=== PATIENT | male | born 1955 | race Caucasian/White ===

== ENCOUNTER 2020-07-22 18:24 | Emergency (ER) | payer OTHER, SELFPAY ==
[2020-07-22 18:26] VITALS: BP 171/101; PULSE 79; RESP 18; TEMP 36.4; O2SAT 97; BMI 30.1
--- NOTE | 2020-07-22 18:46 | CT_ITS ---
INDICATION: Kidney Stone EXAMINATION: CT Abdomen And Pelvis W/O Contrast Injection TECHNIQUE: Helically acquired images were obtained of the abdomen and pelvis without the use of IV contrast. A radiation dose optimization technique was used for this scan. Oral contrast: None. COMPARISON: None FINDINGS: Evaluation of the solid organs and vascular structures is limited without intravenous contrast. Visualized lung bases: Unremarkable Liver: Diffusely hypodense consistent with fatty liver. Gallbladder: Unremarkable Spleen: Unremarkable Pancreas: Unremarkable Adrenal Glands: Unremarkable Kidneys: Urinary diversion with ileal conduit on the right. Multiple tiny nonobstructing calculi seen in the right kidney. 4 mm obstructing stone seen in the distal left ureter with associated moderate hydroureteronephrosis. There are additional nonobstructing calculi seen in the left kidney measuring up to 1.1 cm. Vasculature: Unremarkable GI Tract: Hiatal hernia. Scattered colonic diverticula. Lymphadenopathy: None Peritoneum: No ascites. Bladder: 4 mm dependent bladder stone. Reproductive organs: The prostate is mildly enlarged. Bones/Soft tissues: There are diffuse degenerative changes of the spine. Right convex curvature of the lumbar spine. CT/Abdomen/Pelvis without Cont IMPRESSION: 4 mm obstructing stone seen in the distal left ureter with associated moderate left hydroureteronephrosis. Few additional nonobstructing calculi seen in the left kidney measuring up to 1.1 cm. 4 mm bladder stone. 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 Fatty liver. Diverticulosis. Mild prostatomegaly. Recommend correlation with PSA levels. Electronically Signed: Dick Matias MD at 19:54 EDT Tel , Service support ,
[2020-07-22] MEDS: Morphine 4 MG/ML Syringe IV (18:59)
[2020-07-22] MEDS: Ondansetron 4 MG/2 ML Vial IV (18:59)
[2020-07-22] MEDS: 0.9% Normal Saline 1,000 ML 250 ML IV (18:59)
[2020-07-22 19:05] LABS: Bacteria 0 SEEN /hpf (None Seen); Mucous, Urine 0 SEEN /hpf (<or=2+); Squamous Epithelial Cells - UA 0 SEEN /hpf (0-5)
[2020-07-22] MEDS: Ketorolac 15 MG/ML Vial IV (19:05)
[2020-07-22 19:08] LABS: Color, Urine Yellow (Yellow); Glucose, Dipstick Normal (Normal); Ketone-Dipstick 5 mg/dl (Negative); Leukocyte Esterase-Dipstick 25 /ul (Negative); Nitrite-Dipstick Negative (Negative); Occult Blood-Urine 250 /ul (Negative); Protein-Dipstick 30 mg/dl (Negative); Specific Gravity, Urine 1.025 (1.002-1.030); Urine Bilirubin Dipstick Negative (Negative); Urine Clarity Cloudy (Clear); Urine Urobilinogen Normal (Normal)
[2020-07-22 19:17] LABS: Red Blood Cells-Urine > 100 SEEN /hpf (0-5)
[2020-07-22 19:18] LABS: White Blood Cells 0-5 SEEN /hpf (0-5)
[2020-07-22 19:39] VITALS: BP 156/88; PULSE 75; RESP 16; O2SAT 95
--- NOTE | 2020-07-22 20:26 | ED.DCSUM_ITS ---
- ER Visit Summary Date of Service: 07/22/20 Chief Complaint: Flank pain History of Present Illness: The patient is a 65 M who sees Emerson Muñoz. He does not see a urologist. He reports she has left flank pain and left lower quadrant pain began abruptly 2 hours ago. Is a sharp pain is 10 of 10 severity. Nothing makes this better or worse. He had nausea without vomiting. No diarrhea. His last problem is today. No melena hematochezia. Reports has had frequent urination with this. Physical Examination: Vitals: Stable. Afebrile. General: Well-nourished and well-developed. Head: Normocephalic atraumatic. Neck: Supple, no lymphadenopathy. No JVD. Nontender. Cardiovascular: Regular rate and rhythm. No murmurs. Respiratory: No respiratory distress. Clear to auscultation bilaterally. Abdominal: Soft, nontender, nondistended, normal bowel sounds. No guarding, rebound, or peritoneal signs. Back: Nontender. No CVA tenderness. Extremities: Nontender, no edema. Skin: Normal color, no rash. Neurologic: Alert and oriented ?3. Cranial nerves II through XII are intact. N ormal strength and sensation. Psych: Normal affect. Test Results: UA shows leukocytes, blood, ketones, greater than 100 red blood cells. Clinical Impression(s) from Imaging Studies Abdomen/Pelvis CT 07/22/20 18:46 IMPRESSION: 4 mm obstructing stone seen in the distal left ureter with associated moderate left hydroureteronephrosis. Few additional nonobstructing calculi seen in the left kidney measuring up to 1.1 cm. 4 mm bladder stone. 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 Fatty liver. Diverticulosis. Mild prostatomegaly. Recommend correlation with PSA levels. Electronically Signed: Dick Matias MD at 19:54 EDT Tel , Service support , Emergency Department Course and Treatment: Patient had an IV placed. Is given liter normal saline. Is given morphine, Zofran, and Toradol IV. He is now resting comfortably. Treatment Plan: Patient be discharged with a urine strainer, Percocet, senna, Zofran, and Flomax. Instructed to follow-up with Dr. Cox in 1 week if not improving. Return to the emergency department for any worsening symptoms. Disposition: To home in improved and stable condition. Impression: 1. Left ureterolithiasis. This note was generated with [employer] dictation software. It may contain incorrect words, spelling, and punctuation that were not noted in review of the chart prio r to signing ED Disposition - Plan for ED Patient: Disposition: Home or Assisted Living Instructions: ED Kidney Stone w/ Colic Prescriptions: Tamsulosin HCl [Flomax] 0.4 mg PO DAILY #7 capsule Prescription Printed Oxycodone HCl/Acetaminophen [Percocet 5/325] 1 tablet PO Q6H PRN PRN 3 Days #12 tab PRN Reason: Pain Prescription Printed Sennosides [Senna] 8.6 mg PO QHS #10 tablet Prescription Printed Ondansetron [Zofran Odt] 4 mg PO Q8H PRN PRN #10 tablet PRN Reason: Nausea Prescription Printed Referrals: Arturo Cox MD [STAFF PHYSICIAN] - 1 Week if not improving
[2020-07-22 20:45] VITALS: BP 132/81; PULSE 64; RESP 18; O2SAT 94
== END 2020-07-22 20:49 | disposition home or self-care (01) ==
LOC: ED 19:04
PROVIDERS: Emergency Provider Emergency Medicine; PCP Physician Assistant
DX: N13.2 Hydronephrosis with renal and ureteral calculous obstruction (principal); I10 Essential (primary) hypertension; E03.9 Hypothyroidism, unspecified; Z79.899 Other long term (current) drug therapy
CPT/HCPCS: 74176; 81001; 96361; 96374; 96375; 99284; J7030; A4216; J2405

== ENCOUNTER 2020-09-26 15:53 | Emergency (ER) | payer OTHER, SELFPAY ==
[2020-09-26 15:54] VITALS: BP 154/93; PULSE 70; RESP 14; TEMP 35.7; O2SAT 96; BMI 29.7
--- NOTE | 2020-09-26 16:17 | CT_ITS ---
STUDY: CT ABDOMEN AND PELVIS WITHOUT CONTRAST REASON FOR EXAM: Male, 65 years old. Kidney Stone RADIATION DOSAGE (If Supplied By Facility): CTDIvol = ( 16.81 ) mGy, DLP = ( 855.46 ) mGycm TECHNIQUE: Transaxial images were obtained from the dome of the diaphragm to the symphysis pubis without oral contrast, and without intravenous contrast. Sagittal and coronal images were reconstructed. Individualized dose optimization techniques were used for this CT. COMPARISON: 07/22/2020. FINDINGS: The visualized lung bases are unremarkable. The visualized portions of the heart are within normal limits. Normal liver. Normal gallbladder and extrahepatic biliary system. Normal spleen. Normal pancreas. Normal bilateral adrenal glands. Right parapelvic cysts/dilated renal pelvis is similar in appearance compared to prior. Obstructing stone has migrated to the left ureterovesicular junction with moderate hydroureteronephrosis and extensive left perinephric stranding. Multiple stones are seen within left lower pole renal calyx. Normal visualized stomach. Normal small intestine. There are multiple colonic diverticula consistent with diverticulosis. The appendix is visualized and appears normal. Normal abdominal aorta. Normal inferior vena cava. Normal retroperitoneum. Normal urinary bladder. There is enlargement of the prostate gland. Normal abdominal wall. There are diffuse degenerative changes of the visualized lumbar spine. CT/Abdomen/Pelvis without Cont IMPRESSION: Obstructing stone has migrated to the left ureterovesicular junction with moderate hydroureteronephrosis and extensive left perinephric stranding. Other chronic findings are unchanged Electronically Signed: Tk Akhtar MD at 17:38 EDT Tel , Service support ,
--- NOTE | 2020-09-26 16:19 | EX.ED.DYSGE1 ---
HPI History of Present Illness Chief Complaint: Abd Pain Detail of Chief Complaint: Left flank pain, possible kidney stone Informant: patient Onset/Context/Timing Onset: Today Context: Sudden Onset Timing: Continuous Quality: Dull Location: Left flank Worsened by: Nothing Relieved by: Nothing Narrative Narrative: Patient presents with left flank pain that began today. Patient states he has a history of kidney stones and this feels similar to prior kidney stones. Patient describes the pain as dull. Patient states it is over the left flank area. Patient states nothing makes it better nothing makes it worse. Patient states he is unable to find a position of comfort. Patient denies any fevers or chills. Patient denies any nausea or vomiting. Patient admits to some urinary urgency but denies any dysuria or hematuria. [facility] Medical History (Updated 09/26/20 @ 18:[address] Panfilo Morales DO) Kidney stones Home Medications omeprazole 20 mg PO DAILY 11/22/13 [History Last Taken 03/04/15 09:00] losartan 100 mg PO DAILY 11/16/14 [History Last Taken 03/04/15 09:00] ibuprofen 600 mg PO Q12H PRN PRN 01/03/15 [History Last Taken Unknown] Sennosides [Senna] 8.6 mg PO QHS #10 tablet 07/22/20 [Rx Last Taken Unknown] levothyroxine 25 mcg PO DAILY 07/22/20 [History Last Taken Unknown] ondansetron 4 mg PO Q8H PRN PRN #10 tablet 07/22/20 [Rx Last Taken Unknown] tamsulosin 0.4 mg PO DAILY #7 capsule 07/22/20 [Rx Last Taken Unknown] Allergy/AdvReac Type Severity Reaction Status Date / Time prochlorperazine AdvReac Other Verified 09/26/20 15:55 [From Compazine] Social History Smoking Status: Never smoker ROS ROS ED Constitutional Constitutional ED: Denies chills or fever(s) Eyes Eyes: Denies blurry vision or change in vision ENT ENT ED: Denies rhinorrhea or sore throat Cardiovascular Cardiovascular: Denies chest pain or palpitations Respiratory/Chest Respiratory/Chest: Denies cough or dyspnea Gastrointestinal Gastrointestinal: Denies nausea or vomiting Genitourinary Genitourinary ED: Reports other Details: Urgency ; Denies dysuria or hematuria Musculoskeletal Musculoskeletal: Reports back pain; Denies neck pain Integumentary Denies abscess or rash Neurologic Neurologic: Denies headache(s) or weakness Allergic/Immunologic Allergic/Immunologic ED: Denies mouth swelling or urticaria EXAM Physical Exam Const Vital Signs: 09/26/20 15:54 Temperature 96.2 F L Temperature Source Temporal Pulse Rate 70 Respiratory Rate 14 Blood Pressure 154/93 H Blood Pressure Mean 113 Pulse Ox 96 Oxygen Delivery Method Room Air Positive well nourished and well developed General Appearance ED: well developed HEENT Reports moist mucous membranes Neck supple and no JVD Resp normal respiratory effort and clear to auscultation bilaterally Cardio regular rate, regular rhythm and no murmurs GI normal to inspection, nondistended, normoactive bowel sounds and non-tender Palpation: soft Extremity normal to inspection General Extremety ED: Negative for edema or tenderness General Extremity: Negative for edema Neuro oriented x3, CN's II-XII intact bilaterally and no sensory deficits noted Sensorium / Orientation: alert Motor Exam: strength 5/5 throughout Psych mental status grossly normal Skin no rashes or lesions noted MDM MDM MDM Narrative Medical decision making narrative: Patient was given IV fluids, Zofran, and morphine here. CBC was within normal limits. Basic metabolic profile showed a slightly elevated creatinine 1.46 and BUN of 25. Urinalysis does not show any evidence of urinary tract infection. CT scan of the abdomen pelvis was obtained. There is an obstructing stone at the left UVJ with moderate hydronephrosis. Patient is resting comfortably on reexamination. Patient was instructed to continue his pain medication as previously prescribed. Patient was given referral for urology for follow-up care. Patient understood and was agreeable with the plan. All questions were answered. Lab Data Attestation: I reviewed the patient's lab results. Labs: Laboratory Results - last 24 hr 09/26/20 09/26/20 09/26/20 16:28 16:28 17:06 WBC 8.8 RBC 4.49 L Hgb 14.3 Hct 42.1 MCV 93.8 MCH 31.8 MCHC 34.0 RDW Std Deviation 42.3 RDW Coeff of Vish 12.2 Plt Count 230 MPV 9.4 Immature Gran % (Auto) 0.300 Neut % (Auto) 71.5 H Lymph % (Auto) 19.0 [place] % (Auto) 8.0 Eos % (Auto) 0.9 Baso % (Auto) 0.3 Absolute Neuts (auto) 6.3 Absolute Lymphs (auto) 1.68 Nucleated RBC % 0 Sodium 137 Potassium 3.8 Chloride 106 Carbon Dioxide 25.0 Anion Gap 6 BUN 25 H Creatinine 1.46 H Estim Creat Clear Calc 61.90 Est GFR (MDRD) Af Amer 63 Est GFR (MDRD) Non-Af 52 L BUN/Creatinine Ratio 17.1 Glucose 111 H Calcium 8.3 L Urine Color Yellow Urine Clarity Clear Urine pH 6.0 Ur Specific [place] 1.025 Urine Protein Negative Urine Glucose (UA) Normal Urine Ketones Negative Urine Occult Blood 10 H Urine Nitrite Negative Urine Bilirubin Negative Urine Urobilinogen Normal Ur Leukocyte Esterase Negative Urine RBC 0-5 SEEN Urine WBC 0 SEEN Ur Squamous Epith Cells 0-5 SEEN Urine Bacteria 0 SEEN Urine Mucus 0 SEEN Radiography Diagnostic Testing: Radiology Impression Abdomen/Pelvis CT 09/26/20 16:17 IMPRESSION: Obstructing stone has migrated to the left ureterovesicular junction with moderate hydroureteronephrosis and extensive left perinephric stranding. Other chronic findings are unchanged Electronically Signed: Tk Akhtar MD at 17:38 EDT Tel , Service support , Discharge Plan Triage Chief Complaint: Abd Pain ED Provider: Panfilo Morales Dx/Rx/DC Orders Clinical Impression: Calculus of distal left ureter Instructions: ED Kidney Stone w/ Colic Prescriptions: No Action omeprazole 20 MG capsule 20 mg PO DAILY RF: 0 losartan 100 MG tablet 100 mg PO DAILY RF: 0 ibuprofen 200 MG tablet 600 mg PO Q12H PRN PRN (Reason: Moderate Breakthrough Pain) RF: 0 levothyroxine 25 MCG tablet 25 mcg PO DAILY RF: 0 tamsulosin 0.4 MG capsule 0.4 mg PO DAILY Qty: 7 RF: 0 ondansetron 4 MG tablet 4 mg PO Q8H PRN PRN (Reason: Nausea) Qty: 10 RF: 0 Sennosides [Senna] 8.6 MG tablet 8.6 mg PO QHS Qty: 10 RF: 0 Primary Care Provider: Teodoro Muñoz Referrals: Arturo Cox MD [STAFF PHYSICIAN] - 3-5 Days Teodoro Muñoz PA [Primary Care Provider] - 5-7 Days Disposition Disposition: Home, Self Care
[2020-09-26] MEDS: Ondansetron 4 MG/2 ML Vial IV (16:42)
[2020-09-26] MEDS: 0.9% Normal Saline 1,000 ML 250 ML IV (16:42)
[2020-09-26] MEDS: Morphine 4 MG/ML Syringe IV (16:43)
[2020-09-26 16:49] LABS: Absolute Lymphocyte Count 1.68 X10^3/uL (0.83-4.51); Absolute Neutrophil Count 6.3 X10^3/uL (2.0-7.7); Basophil# 0.03 X10^3/uL; Basophil% 0.3 % (0-1); Eosinophil# 0.08 X10^3/uL; Eosinophils% 0.9 % (0-5); Hematocrit 42.1 % (40-54); Hemoglobin 14.3 g/dL (13.0-16.5); Lymphocyte # 1.68 X10^3/ul (0.83-4.51); Mean Corpuscular Hgb 31.8 pg (27.0-32.0); Mean Corpuscular Volume 93.8 fL (80-94); Mean Platelet Vol. 9.4 fl (6.2-12.0); Monocyte# 0.71 X10^3/uL; NRBC Flagged by Analyzer 0 % (0-5); Neutrophil % 71.5 % (47-70); Platelet Count 230 K/mm3 (150-450); RBC Distribution Width CV 12.2 % (11.6-14.6); RBC Distribution Width SD 42.3 fl (35.1-43.9); Red Blood Count 4.49 M/mm3 (4.6-6.2); White Blood Count 8.8 K/mm3 (4.4-11.0)
[2020-09-26 16:55] LABS: Anion Gap 6 (5-15); BUN 25 mg/dL (7-18); BUN/Creat Ratio 17.1 RATIO (10-20); Calcium,Total 8.3 mg/dL (8.5-10.1); Chloride 106 mmol/L (98-107); Creatinine, Serum 1.46 mg/dL (0.70-1.30); EST Glomerular Filtration Rate 52 mL/min (>60); Est Glom Filt Rate - Afr Amer 63 mL/min (>60); Glucose 111 mg/dL (74-106); Potassium 3.8 mmol/L (3.5-5.1); Sodium Level 137 mmol/L (136-145)
[2020-09-26 17:12] LABS: Bacteria 0 SEEN /hpf (None Seen); Mucous, Urine 0 SEEN /hpf (<or=2+); White Blood Cells 0 SEEN /hpf (0-5)
[2020-09-26 17:22] LABS: Color, Urine Yellow (Yellow); Glucose, Dipstick Normal (Normal); Ketone-Dipstick Negative (Negative); Leukocyte Esterase-Dipstick Negative /ul (Negative); Nitrite-Dipstick Negative (Negative); Occult Blood-Urine 10 /ul (Negative); Protein-Dipstick Negative (Negative); Specific Gravity, Urine 1.025 (1.002-1.030); Urine Bilirubin Dipstick Negative (Negative); Urine Clarity Clear (Clear); Urine Urobilinogen Normal (Normal)
[2020-09-26 17:44] LABS: Red Blood Cells-Urine 0-5 SEEN /hpf (0-5); Squamous Epithelial Cells - UA 0-5 SEEN /hpf (0-5)
[2020-09-26 18:56] VITALS: BP 140/78; PULSE 64; PULSE 67; RESP 18
== END 2020-09-26 19:00 | disposition home or self-care (01) ==
PROVIDERS: Emergency Provider Emergency Medicine; PCP Physician Assistant
DX: N13.2 Hydronephrosis with renal and ureteral calculous obstruction (principal); Z87.442 Personal history of urinary calculi
CPT/HCPCS: 74176; 80048; 81001; 85025; 96361; 96374; 96375; 99284; J7030; A4216; J2405

== ENCOUNTER 2024-02-18 10:19 | Emergency (ER) | payer OTHER, SELFPAY ==
[2024-02-18 10:20] VITALS: BP 157/100; PULSE 80; RESP 16; TEMP 36.6; O2SAT 98; BMI 31.5
--- NOTE | 2024-02-18 10:40 | ED.VIS.GI ---
HPI HPI - GI History of Present Illness Chief Complaint: Flank Pain Narrative Narrative: 68-year-old male, past medical history of hypertension, arthritis, presents with right flank pain that has had for the last 4 days. He relates history that remotely he has had kidney stones in the past and this feels similar. His pain began around 4 days ago. Described as both dull and achy and sharp and stabbing. Relatively constant, but waxes and wanes. He denies any gross hematuria, no fevers or chills, no nausea or vomiting. He has been taking Tylenol and he also takes an NSAID with mild relief of his symptoms. Does not necessarily radiate towards the front. [facility] Medical History Thyroid disorder Hypercholesteremia Hypertension Kidney stones Home Medications ?Medication ?Instructions ?Recorded ?Last Taken ?Type omeprazole 20 mg capsule,delayed 20 mg PO DAILY 11/22/13 03/04/15 09:00 History release losartan 100 mg tablet 100 mg PO DAILY 11/16/14 03/04/15 09:00 History ibuprofen 200 mg tablet 600 mg PO Q12H PRN PRN Moderate 01/03/15 Unknown History Breakthrough Pain Sennosides [Senna] 8.6 mg PO QHS #10 tabs 07/22/20 Unknown Rx levothyroxine 25 mcg tablet 25 mcg PO DAILY 07/22/20 Unknown History ondansetron 4 mg disintegrating 4 mg PO Q8H PRN PRN Nausea #10 tabs 07/22/20 Unknown Rx tablet tamsulosin 0.4 mg capsule 0.4 mg PO DAILY #7 CAPSULES 07/22/20 Unknown Rx cyclobenzaprine 10 mg tablet 10 mg PO TID PRN Muscle Spasm #20 02/18/24 Unknown Rx TABLETS Allergy/AdvReac Type Severity Reaction Status Date / Time prochlorperazine (From AdvReac Other Verified 02/18/24 10:20 Compazine) Social History Smoking Status: Never smoker ROS ROS ED ROS Narrative Constitutional: No fever, no chills. HEENT: No sore throat. No neck pain. No loss of vision. No rhinorrhea. Cardiovascular: No chest pain. No palpitations. No pedal edema. Respiratory: No cough, no shortness of breath. Abdominal: No abdominal pain. No nausea. No vomiting. Genitourinary: No dysuria. No hematuria. Positive right flank pain. Musculoskeletal: No myalgias. No arthralgias. Neurologic: No headaches. No dizziness. No lightheadedness. Skin: No rash. No change in color. Psychiatric: No depression. No anxiety. EXAM Physical Exam Narrative Exam Narrative: Afebrile. Vital signs noted. HEENT: Normocephalic. Atraumatic. PERRL, EOMI. Neck soft and supple. No point tenderness or step off. Cardiovascular: Regular rate and rhythm. No murmurs, rubs, or gallops appreciated. Respiratory: No tachypnea. Lungs clear to auscultation bilaterally. Gastrointestinal: Abdomen soft, nontender, with normoactive bowel sounds. No rebound or guarding. Negative Mai sign. No CVA tenderness to percussion. Neurological: Awake. Alert. Nonfocal, nonlateralizing. Skin: No rash. Normal color. No pallor. Musculoskeletal: No pedal edema. Full range of motion extremities. Const Vital Signs: 02/18/24 10:20 02/18/24 12:19 Temperature 97.8 F Temperature Source Temporal Pulse Rate 80 61 Respiratory Rate 16 15 Blood Pressure 157/100 H 143/103 H Blood Pressure Mean 119 116 Pulse Ox 98 97 Oxygen Delivery Method Room Air Room Air MDM [facility] Narrative Medical decision making narrative: Differential diagnosis includes but not limited to ureterolithiasis versus pyelonephritis versus cholecystitis. History and physical does not support cholecystitis. He declined stronger pain medications here in the emergency department. He relates history that he is leaving for vacation tomorrow so wants to know whether or not he has a kidney stone as this feels very similar. I reviewed his laboratory work and he has normal white count of 6.2 with hemoglobin normal at 15.8, hematocrit 44.6, platelet count normal at 260. Electrolyte panel positive for chloride of 108 BUN slightly elevated 29 with normal creatinine of 1.24, glucose elevated at 132 with normal anion gap of 6. Urinalysis is negative for infection with 0-5 WBCs, 0-5 RBCs. 0 bacteria. I do not feel antibiotics are indicated. CT of the abdomen and pelvis without hand tenderness was obtained and reviewed, and there is no evidence of obstructing ureteral stone. He does have a 2 mm renal stone. He has stable renal cysts. Otherwise, grossly unremarkable. LFTs show slightly elevated alk phos which I think is nonspecific, normal AST and normal ALT. Lipase is normal at 36 so I doubt pancreatitis. I do not feel that he needs imaging of the gallbladder. After Toradol, repeat examination shows him resting comfortably and he feels slightly improved. He may have more musculoskeletal back/flank pain. I feel he be discharged to follow-up. He will continue his [id number] medications for pain and his prescription NSAIDs. I did add a few tablets of cyclobenzaprine. I feel he can be discharged to follow-up with his primary care provider. Return instructions were reviewed. Patient motivated for discharge. Disposition is discharged home in stable condition. History & Record Review Discussion w/independent historian: Patient Lab Data Attestation: I reviewed the patient's lab results. Labs: Laboratory Results - last 24 hr 02/18/24 02/18/24 10:25 11:22 WBC 6.2 RBC 4.85 Hgb 15.8 Hct 44.6 MCV 92.0 MCH 32.6 H MCHC 35.4 RDW Std Deviation 41.7 RDW Coeff of Vish 12.3 Plt Count 260 MPV 9.3 Immature Gran % (Auto) 0.500 Neut % (Auto) 50.5 Lymph % (Auto) 37.8 [place] % (Auto) 8.5 Eos % (Auto) 1.6 Baso % (Auto) 1.1 H Absolute Neuts (auto) 3.1 Absolute Lymphs (auto) 2.35 Nucleated RBC % 0 Sodium 138 Potassium 4.4 Chloride 109 H Carbon Dioxide 23.0 Anion Gap 6 BUN 29 H Creatinine 1.24 Estim Creat Clear Calc 79.98 Est GFR (MDRD) Af Amer 75 Est GFR (MDRD) Non-Af 62 BUN/Creatinine Ratio 23.4 H Glucose 132 H Calcium 9.4 Total Bilirubin 1.00 AST 21 ALT 32 Alkaline Phosphatase 120 H Total Protein 7.9 Albumin 4.1 Globulin 3.8 Albumin/Globulin Ratio 1.1 Lipase 36 Urine Color Yellow Urine Clarity Clear Urine pH 5.0 Ur Specific [place] 1.025 Urine Protein 30 H Urine Glucose (UA) Normal Urine Ketones Negative Urine Occult Blood 10 H Urine Nitrite Negative Urine Bilirubin Negative Urine Urobilinogen Normal Ur Leukocyte Esterase Negative Urine RBC 0-5 SEEN Urine WBC 0-5 SEEN Ur Squamous Epith Cells 0 SEEN Urine Bacteria 0 SEEN Hyaline Casts 0-5 SEEN Urine Mucus 1+ Urine Yeast RARE Radiography Diagnostic Testing: Clinical Impression(s) from Imaging Studies Abdomen/Pelvis CT 02/18/24 10:47 IMPRESSION: 1. 2 mm right renal stone. 2. Diverticulosis coli. Electronically Signed: Vladimir Jade MD at 11:05 EST , Discharge Plan Triage Chief Complaint: Flank Pain ED Provider: Sang Gil Dx/Rx/DC Orders Clinical Impression: Acute right flank pain, Back pain Instructions: ED Flank Pain, Uncertain Cause, ED Pain, Acute, Uncertain Cause Prescriptions: New cyclobenzaprine 10 mg tablet 10 mg PO TID PRN (Reason: Muscle Spasm) Qty: 20 0RF No Action omeprazole 20 MG capsule 20 mg PO DAILY Patient Comments: acid reflux losartan 100 MG tablet 100 mg PO DAILY Patient Comments: blood pressure ibuprofen 200 MG tablet 600 mg PO Q12H PRN PRN (Reason: Moderate Breakthrough Pain) Patient Comments: anti-inflammatory levothyroxine 25 MCG tablet 25 mcg PO DAILY tamsulosin 0.4 MG capsule 0.4 mg PO DAILY Qty: 7 0RF ondansetron 4 MG tablet 4 mg PO Q8H PRN PRN (Reason: Nausea) Qty: 10 0RF Sennosides [Senna] 8.6 MG tablet 8.6 mg PO QHS Qty: 10 0RF Primary Care Provider: Briana Morse Referrals: Teodoro Muñoz PA [Non-Staff] - As soon as possible Activity Restrictions/Additional Instructions: Return with fever, increased pain, new or worsening symptoms. Print Language: [place] Disposition Disposition: Home, Self Care
--- NOTE | 2024-02-18 10:47 | CT_ITS ---
EXAM: CT ABDOMEN AND PELVIS WITHOUT INTRAVENOUS CONTRAST CLINICAL INDICATION: Kidney Stone TECHNIQUE: Helically acquired images were obtained of the abdomen and pelvis without intravenous contrast. This CT exam was performed using one or more of the following dose reduction techniques: automated exposure control, adjustment of the mA and/or kV according to patient size, and/or use of iterative reconstruction technique. COMPARISON: CT Abdomen Pelvis dated 09/26/2020 and 07/22/2020 FINDINGS: LOWER THORAX: Normal. Lung bases are clear. No cardiomegaly. No pericardial effusion. ABDOMEN: LIVER: Normal. Homogeneous. GALLBLADDER AND BILE DUCTS: Normal. No calcified gallstones. No gallbladder distention or wall edema. No intra- or extrahepatic biliary ductal dilation. PANCREAS: Normal. No focal cystic mass. SPLEEN: Normal. Normal size without focal cystic or solid mass. ADRENALS: Normal. No nodules. KIDNEYS AND URETERS: 2 mm stone again noted within the lower pole calyx of the right kidney. Resolution of the previously noted left renal stones. Stable right parapelvic renal cysts. Stable 16 mm left renal cyst. No specific follow-up indicated. STOMACH AND BOWEL: Diverticulosis of the colon noted without evidence of acute diverticulitis. PELVIS: APPENDIX: Appendix is visualized and normal in appearance. BLADDER: Normal. REPRODUCTIVE: Unremarkable as visualized. No mass. ABDOMEN and PELVIS: INTRAPERITONEAL SPACE: Normal. No ascites or other fluid collection. No free air. BONES/JOINTS: No suspicious lytic or blastic abnormality. SOFT TISSUES: Small fat-containing umbilical hernia is present. VASCULATURE: Normal. Abdominal aorta is non-dilated. LYMPH NODES: Normal. No enlarged lymph nodes. CT/Abdomen/Pelvis without Cont IMPRESSION: 1. 2 mm right renal stone. 2. Diverticulosis coli. Electronically Signed: Vladimir Jade MD at 11:05 EST ,
[2024-02-18 10:52] LABS: Absolute Lymphocyte Count 2.35 X10^3/uL (0.83-4.51); Absolute Neutrophil Count 3.1 X10^3/uL (2.0-7.7); Basophil# 0.07 X10^3/uL; Basophil% 1.1 % (0-1); Eosinophils% 1.6 % (0-5); Hematocrit 44.6 % (40-54); Hemoglobin 15.8 g/dL (13.0-16.5); Lymphocyte # 2.35 X10^3/ul (0.83-4.51); Lymphocyte % 37.8 % (19-41); Mean Corp Hgb Conc 35.4 g/dL (32-36); Mean Corpuscular Hgb 32.6 pg (27.0-32.0); Mean Platelet Vol. 9.3 fl (6.2-12.0); Monocyte# 0.53 X10^3/uL; Monocyte% 8.5 % (0-10); NRBC Flagged by Analyzer 0 % (0-5); Neutrophil # 3.14 X10^3/uL (2.7-7.7); Neutrophil % 50.5 % (47-70); Platelet Count 260 K/mm3 (150-450); RBC Distribution Width CV 12.3 % (11.6-14.6); RBC Distribution Width SD 41.7 fl (35.1-43.9); Red Blood Count 4.85 M/mm3 (4.6-6.2); White Blood Count 6.2 K/mm3 (4.4-11.0)
[2024-02-18] MEDS: Ketorolac 15 MG/ML Vial IV (10:58)
[2024-02-18 11:06] LABS: ALB/GLOB Ratio 1.1 RATIO (0.9-2.4); AST(SGOT) 21 U/L (15-37); Alanine Aminotransfer ALT/SGPT 32 U/L (16-61); Albumin, Serum 4.1 g/dL (3.2-5.0); Alkaline Phosphatase 120 U/L (45-117); Anion Gap 6 (5-15); BUN 29 mg/dL (7-18); BUN/Creat Ratio 23.4 RATIO (10-20); Calcium,Total 9.4 mg/dL (8.5-10.1); Chloride 109 mmol/L (98-107); Creatinine, Serum 1.24 mg/dL (0.70-1.30); EST Glomerular Filtration Rate 62 mL/min (>60); Est Glom Filt Rate - Afr Amer 75 mL/min (>60); Estimated Creatinine Clearance 79.98 ml/min; Globulin 3.8 g/dL (2.2-4.2); Glucose 132 mg/dL (74-106); Lipase 36 U/L (13-75); Potassium 4.4 mmol/L (3.5-5.1); Protein, Total 7.9 g/dL (6.4-8.2); Sodium Level 138 mmol/L (136-145)
[2024-02-18 11:26] LABS: Bacteria 0 SEEN /hpf (None Seen); Squamous Epithelial Cells - UA 0 SEEN /hpf (0-5)
[2024-02-18 11:27] LABS: Color, Urine Yellow (Yellow); Glucose, Dipstick Normal (Normal); Ketone-Dipstick Negative (Negative); Leukocyte Esterase-Dipstick Negative /ul (Negative); Nitrite-Dipstick Negative (Negative); Occult Blood-Urine 10 /ul (Negative); Protein-Dipstick 30 mg/dl (Negative); Specific Gravity, Urine 1.025 (1.002-1.030); Urine Bilirubin Dipstick Negative (Negative); Urine Clarity Clear (Clear); Urine Urobilinogen Normal (Normal)
[2024-02-18 11:52] LABS: Hyaline Cast 0-5 SEEN /lpf (0-5); Mucous, Urine 1+ /hpf (<or=2+)
[2024-02-18 11:53] LABS: Red Blood Cells-Urine 0-5 SEEN /hpf (0-5)
[2024-02-18 11:55] LABS: White Blood Cells 0-5 SEEN /hpf (0-5)
[2024-02-18 11:56] LABS: Yeast-Urine RARE /hpf (None Seen)
[2024-02-18 12:19] VITALS: BP 143/103; PULSE 61; RESP 15; O2SAT 97
[2024-02-18 13:25] VITALS: BP 158/99; PULSE 89; RESP 18; TEMP 36.6; O2SAT 100
== END 2024-02-18 13:26 | disposition home or self-care (01) ==
PROVIDERS: Emergency Provider Emergency Medicine; PCP Nurse Practitioner Family; Visit Provider Emergency Medicine
DX: R10.9 Unspecified abdominal pain (principal); M54.9 Dorsalgia, unspecified; I10 Essential (primary) hypertension; N28.1 Cyst of kidney, acquired; N20.0 Calculus of kidney; E07.9 Disorder of thyroid, unspecified; E78.00 Pure hypercholesterolemia, unspecified; M19.90 Unspecified osteoarthritis, unspecified site; Z87.442 Personal history of urinary calculi; Z79.899 Other long term (current) drug therapy; Z79.890 Hormone replacement therapy
CPT/HCPCS: 74176; 80053; 81001; 83690; 85025; 96374; 99284